=== PATIENT | female | born 1940 | race Caucasian/White ===

== ENCOUNTER → 2017-12-04 | Outpatient (CLI) | payer OTHER ==
[~2017-12-04] MED LIST: AMLODIPINE BESYL5 MG PO
== END | disposition home or self-care (01) ==
LOC: MRI 12:58
DX: I65.22 Occlusion and stenosis of left carotid artery (principal); R93.8 Abnormal findings on diagnostic imaging of other specified body structures; I10 Essential (primary) hypertension; Z90.710 Acquired absence of both cervix and uterus; Z85.41 Personal history of malignant neoplasm of cervix uteri

== ENCOUNTER → 2018-01-17 | Outpatient (CLI) | payer OTHER ==
--- NOTE | ~2018-01-17 | ST ---
[place], [place] EXERCISE STRESS TEST REPORT NAME: LISA ORNELAS [facility] #: [id number] UNIT #: [id number] ROOM: DOCTOR: MANPREET LUGO MD BIRTHDATE: [birth year] DOS: 01/17/2018 INDICATION: Dyspnea. PROCEDURE: The patient was given a rapid infusion of regadenoson 0.4 mg intravenously followed by a saline flush. She experienced lightheadedness and a warm sensation. Her resting heart rate of 60 aidan to 101. The resting blood pressure 140/62, did not change. Her resting electrocardiogram showed sinus rhythm with nonspecific T-wave flattening. She did develop inferior lateral T-wave inversion with the infusion, it resolved early in recovery. Forty seconds after the infusion of regadenoson, she was given radionuclide intravenously. IMPRESSION: 1. Well tolerated infusion of regadenoson. 2. Radionuclide administered. Please see the separate imaging report for further details of the patient's stress test results. MANPREET LUGO MD CM:STRESS:EXERCISE STRESS TEST REPORT [id number] VINAY LUGO MD
== END | disposition home or self-care (01) ==
LOC: CARD 01:53
DX: R06.09 Other forms of dyspnea (principal)

== ENCOUNTER → 2018-01-30 | Day surgery (SDC) | payer OTHER ==
[~2018-01-30] VITALS: Ht 154.9 cm; Wt 53.5 kg
[~2018-01-30] MED LIST changes: +PROVENTIL HFA6.7 GM INH; +SYMB80 INH
--- NOTE | ~2018-01-30 | PROC NOTE ---
[place], [place] PROCEDURE NOTE NAME: LISA ORNELAS [facility] #: [id number] UNIT #: [id number] ROOM: DOCTOR: JAMES HERNANDEZ MD,PAT BIRTHDATE: [birth year] DOS: 01/30/2018 PRIMARY CARE PHYSICIAN: Elva Brown M.D. PROCEDURE: Bronchoscopy. PREOPERATIVE DIAGNOSIS: The patient with the cavitation 2 cm lesion in the right upper lobe. POSTOPERATIVE DIAGNOSIS: The patient with the cavitation 2 cm lesion in the right upper lobe. PROCEDURE DESCRIPTION: Informed consent obtained for the patient. The patient was brought to the operating room. She was placed in supine position. Conscious sedation administered by the Anesthesia Department. After achieving proper sedation, airway introduced into the mouth. Bronchoscope advanced to the airway into the laryngeal area. Epiglottis and vocal cords were seen. The bronchoscope advanced to the vocal cord and tracheal lumen. Tracheal lumen was noted without any secretions. The efraín noted sharp. Right upper, right middle, right lower, left upper, lingular lower bronchi were all examined individually. There were no obstructive lesions noted. The specimen for the patient for the bronchial washing taken from the right upper lobe without any difficulty. Postoperative diagnosis were discussed with the patient's family members. PAT RAMIREZ MD CM:PROCNOTE:PROCEDURE NOTE 1203 15 PAT HERNANDEZ MD
[2018-01-30 08:00] VITALS: BP 131/59
[2018-01-30 09:18] VITALS: BP 101/59
[2018-01-30 09:33] VITALS: BP 116/45
[2018-01-30 09:48] VITALS: BP 114/51
[2018-01-30 09:55] VITALS: BP 118/64
[2018-01-31 16:08] LABS: ACID FAST SPEC PROCESSING Concentration (.)
== END | disposition home or self-care (01) ==
LOC: SDC 01-28 12:30
PROVIDERS: Internal Medicine Critical Care Medicine
DX: J98.4 Other disorders of lung (principal); Z90.710 Acquired absence of both cervix and uterus; Z82.49 Family history of ischemic heart disease and other diseases of the circulatory system; F17.210 Nicotine dependence, cigarettes, uncomplicated

== ENCOUNTER → 2018-02-06 | Outpatient (CLI) | payer OTHER ==
[2018-02-07 11:05] LABS: ANTI-DSDNA ANTIBODIES 096339 5 IU/mL (0-9); ANTI-RNP ANTIBODIES <0.2 AI (0.0-0.9); ANTICHROMATIN ANTIBODIES <0.2 AI (0.0-0.9); ANTISCLERODERMA-70 AB <0.2 AI (0.0-0.9); SJOGREN ANTI-SS-A <0.2 AI (0.0-0.9); SJOREN AB, ANTI-SS-B <0.2 AI (0.0-0.9)
[2018-02-07 15:06] LABS: ANGIOTENSIN-CONVERTING ENZYME 62 U/L (14-82)
[2018-02-07 16:08] LABS: ATYPICAL PANCA <1:20 titer (Neg:<1:20); CYTOPLASMIC (C-ANCA) <1:20 titer (Neg:<1:20)
[2018-02-08 05:08] LABS: IGG SUBCLASS 1 301 mg/dL (248-810); IGG SUBCLASS 2 173 mg/dL (130-555); IGG SUBCLASS 3 56 mg/dL (15-102); IGG SUBCLASS 4 4 mg/dL (2-96); IMMUNOGLOBULIN G, QNT 564 mg/dL (700-1600)
[2018-02-08 19:05] LABS: BLASTOMYCES ANTIBODY Negative (Neg:<1:1)
[2018-02-11 04:09] LABS: MITOGEN VALUE 6.27 IU/mL (.); TB Ag MINUS NIL VALUE 0.05 IU/mL (.); TB Ag VALUE 0.08 IU/mL (.); TB GOLD Negative (Negative)
== END | disposition home or self-care (01) ==
LOC: LAB 14:16 → EDSTATUS 14:16
PROVIDERS: Internal Medicine Critical Care Medicine
DX: J84.9 Interstitial pulmonary disease, unspecified (principal)

== ENCOUNTER → 2018-02-18 | Day surgery (SDC) | payer OTHER ==
[2018-02-18] VITALS (9 sets, daily range): BP systolic 109–134; BP diastolic 42–84
[~2018-02-18] VITALS: Ht 152.4 cm; Wt 56.7 kg
[~2018-02-18] MED LIST changes: +OMEPRAZOLE40 MG PO
[2018-02-18 12:12] LABS: ACT PARTIAL THROMBO TIME 22.2 SECONDS (20.8-31.5); INTERNATIONAL NORM RATIO 0.9 (2.0-3.5)
== END | disposition home or self-care (01) ==
LOC: SDC 00:47
PROVIDERS: Internal Medicine Critical Care Medicine
DX: C34.11 Malignant neoplasm of upper lobe, right bronchus or lung (principal); J44.9 Chronic obstructive pulmonary disease, unspecified; I10 Essential (primary) hypertension; K21.9 Gastro-esophageal reflux disease without esophagitis; Z90.49 Acquired absence of other specified parts of digestive tract; Z82.49 Family history of ischemic heart disease and other diseases of the circulatory system; Z90.710 Acquired absence of both cervix and uterus; F17.210 Nicotine dependence, cigarettes, uncomplicated

== ENCOUNTER 2018-04-01 11:40 | Emergency (ER) | payer OTHER ==
[~2018-04-01] VITALS: Ht 162.5 cm; Wt 68.0 kg
[2018-04-01 12:11] LABS: HEMATOCRIT 34.2 % (37.0-47.0); HEMOGLOBIN 11.6 g/dl (12.0-16.0); MEAN CELL VOLUME 98.8 fl (81.0-99.0); MEAN CORPUSCULAR HGB 33.5 pg (27.0-31.0); MEAN CORPUSCULAR HGB CONC 33.9 g/dl (33.0-37.0); MEAN PLATELET VOLUME 11.6 fl (9.6-12.3); NUCLEATED RED BLOOD CELL 0.6 % (0.0-0.0); RED BLOOD COUNT 3.46 10*6/uL (4.10-5.10); RED CELL DISTRI WIDTH 12.3 % (0-14.5); WHITE BLOOD COUNT 3.1 10*3/uL (4.8-10.8)
[2018-04-01 12:18] LABS: ACT PARTIAL THROMBO TIME 22.4 SECONDS (20.8-31.5); INTERNATIONAL NORM RATIO 0.9 (2.0-3.5)
[2018-04-01 12:23] LABS: CREATININE 1.26 mg/dL (0.55-1.02)
[2018-04-01 12:30] LABS: PLATELET COUNT AUTOMATED 2 10*3/uL (130-400)
[2018-04-01 12:36] LABS: ATYPICAL LYMPHS 2 % (0-0); TOTAL CELLS COUNTED 100 #CELLS
[2018-04-01 12:37] LABS: PLATELET SUFFICIENCY LOW (NORMAL)
== END 2018-04-01 16:18 | disposition home or self-care (01) ==
LOC: ED 11:40
PROVIDERS: Emergency Medicine
DX: R04.0 Epistaxis (principal); D72.829 Elevated white blood cell count, unspecified; D69.6 Thrombocytopenia, unspecified; F17.200 Nicotine dependence, unspecified, uncomplicated; Z90.710 Acquired absence of both cervix and uterus; Z79.899 Other long term (current) drug therapy; Z85.118 Personal history of other malignant neoplasm of bronchus and lung

== ENCOUNTER → 2018-04-02 | Outpatient (CLI) | payer OTHER ==
[2018-04-02 16:11] LABS: HEMATOCRIT 33.9 % (37.0-47.0); HEMOGLOBIN 11.3 g/dl (12.0-16.0); MEAN CELL VOLUME 99.7 fl (81.0-99.0); MEAN CORPUSCULAR HGB 33.2 pg (27.0-31.0); MEAN CORPUSCULAR HGB CONC 33.3 g/dl (33.0-37.0); MEAN PLATELET VOLUME 10.8 fl (9.6-12.3); RED CELL DISTRI WIDTH 12.1 % (0-14.5); WHITE BLOOD COUNT 2.4 10*3/uL (4.8-10.8)
[2018-04-02 16:13] LABS: PLATELET COUNT AUTOMATED 46 10*3/uL (130-400)
[2018-04-02 16:32] LABS: BASOPHILS 1 % (0-1); PLATELET SUFFICIENCY LOW (NORMAL); TOTAL CELLS COUNTED 100 #CELLS
== END | disposition home or self-care (01) ==
LOC: LAB 15:18
PROVIDERS: Internal Medicine Hematology & Oncology
DX: C34.11 Malignant neoplasm of upper lobe, right bronchus or lung (principal)

== ENCOUNTER → 2018-04-07 | Outpatient (CLI) | payer OTHER ==
[2018-04-07 14:27] LABS: HEMATOCRIT 30.2 % (37.0-47.0); HEMOGLOBIN 10.2 g/dl (12.0-16.0); MEAN CELL VOLUME 98.7 fl (81.0-99.0); MEAN CORPUSCULAR HGB 33.3 pg (27.0-31.0); MEAN CORPUSCULAR HGB CONC 33.8 g/dl (33.0-37.0); MEAN PLATELET VOLUME 10.1 fl (9.6-12.3); PLATELET COUNT AUTOMATED 152 10*3/uL (130-400); RED BLOOD COUNT 3.06 10*6/uL (4.10-5.10); RED CELL DISTRI WIDTH 11.7 % (0-14.5); WHITE BLOOD COUNT 2.8 10*3/uL (4.8-10.8)
[2018-04-07 14:29] LABS: BILIRUBIN NEGATIVE (NEGATIVE); BLOOD TRACE-LYSED (NEGATIVE); CLARITY CLEAR (CLEAR); COLOR YELLOW (YELLOW); GLUCOSE NEGATIVE (NEGATIVE); KETONE NEGATIVE (NEGATIVE); LEUKO ESTERASE NEGATIVE (NEGATIVE); NITRITE NEGATIVE (NEGATIVE); SPECIFIC GRAVITY <= 1.005 (1.005-1.030); UROBILINOGEN 0.2 E.U./dl (0.2-1.0)
[2018-04-07 14:39] LABS: BACTERIA 1+; RBC 0-2 rbc/hpf (0-2)
[2018-04-07 15:02] LABS: TOTAL CELLS COUNTED 100 #CELLS
[2018-04-07 15:03] LABS: PLATELET SUFFICIENCY NORMAL (NORMAL)
== END | disposition home or self-care (01) ==
LOC: LAB 13:52
PROVIDERS: Internal Medicine Hematology & Oncology; Surgery
DX: C34.11 Malignant neoplasm of upper lobe, right bronchus or lung (principal); N39.0 Urinary tract infection, site not specified

== ENCOUNTER → 2018-04-10 | Day surgery (SDC) | payer OTHER ==
[2018-03-24 12:26] LABS: BASO # 0.1 10*3/uL (0.0-0.1); BASO % 0.9 % (0.0-1.0); EOS # 0.2 10*3/uL (0.0-0.4); EOS % 3.2 % (1.0-4.0); HEMATOCRIT 44.7 % (37.0-47.0); HEMOGLOBIN 14.5 g/dl (12.0-16.0); LYMPH # 2.6 10*3/uL (1.3-4.4); LYMPH % 43.8 % (27.0-41.0); MEAN CELL VOLUME 101.8 fl (81.0-99.0); MEAN CORPUSCULAR HGB CONC 32.4 g/dl (33.0-37.0); MEAN PLATELET VOLUME 12.1 fl (9.6-12.3); MONO # 0.1 10*3/uL (0.1-1.0); MONO % 1.7 % (3.0-9.0); NEUT # 2.9 10*3/uL (2.3-7.9); NEUT % 50.2 % (47.0-73.0); PLATELET COUNT AUTOMATED 83 10*3/uL (130-400); RED BLOOD COUNT 4.39 10*6/uL (4.10-5.10); RED CELL DISTRI WIDTH 12.6 % (0-14.5); WHITE BLOOD COUNT 5.9 10*3/uL (4.8-10.8)
[2018-03-24 12:36] LABS: BILIRUBIN NEGATIVE (NEGATIVE); BLOOD NEGATIVE (NEGATIVE); CLARITY SL CLOUDY (CLEAR); COLOR YELLOW (YELLOW); GLUCOSE NEGATIVE (NEGATIVE); KETONE NEGATIVE (NEGATIVE); LEUKO ESTERASE 1+ (NEGATIVE); NITRITE NEGATIVE (NEGATIVE); PH 5.5 (5.0-9.0); SPECIFIC GRAVITY 1.015 (1.005-1.030); UROBILINOGEN 0.2 E.U./dl (0.2-1.0)
[2018-03-24 12:54] LABS: CREATININE 1.12 mg/dL (0.55-1.02); POTASSIUM 4.7 mmol/L (3.5-5.1)
[2018-03-24 13:03] LABS: WBC 31-40 wbc/hpf (0-5)
[2018-03-24 13:07] LABS: ACT PARTIAL THROMBO TIME 21.7 SECONDS (20.8-31.5); INTERNATIONAL NORM RATIO 0.9 (2.0-3.5)
[2018-03-24 13:09] LABS: BACTERIA 3+; EPITHELIAL CELLS 15-20
[2018-03-27 09:19] LABS: BILIRUBIN NEGATIVE (NEGATIVE); BLOOD NEGATIVE (NEGATIVE); CLARITY SL CLOUDY (CLEAR); COLOR YELLOW (YELLOW); GLUCOSE NEGATIVE (NEGATIVE); KETONE NEGATIVE (NEGATIVE); LEUKO ESTERASE TRACE (NEGATIVE); NITRITE NEGATIVE (NEGATIVE); PH 5.5 (5.0-9.0); SPECIFIC GRAVITY <= 1.005 (1.005-1.030); UROBILINOGEN 0.2 E.U./dl (0.2-1.0)
[2018-03-27 09:45] LABS: BACTERIA 1+
[2018-04-09 16:26] LABS: ACT PARTIAL THROMBO TIME 22.4 SECONDS (20.8-31.5)
[2018-04-09 16:30] LABS: CREATININE 1.16 mg/dL (0.55-1.02)
[~2018-04-10] VITALS: Ht 152.4 cm; Wt 54.4 kg
[~2018-04-10] MED LIST changes: +NORCO 5-325 TA1 EACH PO
--- NOTE | ~2018-04-10 | PROC NOTE ---
[place], [place] PROCEDURE NOTE NAME: LISA ORNELAS [facility] #: [id number] UNIT #: [id number] ROOM: DOCTOR: TOMMY ALBARADO MD BIRTHDATE: [birth year] DOS: 04/10/2018 PREOPERATIVE DIAGNOSIS: Right lung cancer. POSTOPERATIVE DIAGNOSIS: Right lung cancer. PROCEDURE: Left internal jugular MediPort placement. SURGEON: Tommy Albarado MD BUSINESS LINE CONTROLLER: DEEP. ANESTHESIA: MAC with local (1% plain lidocaine). INDICATION OF PROCEDURE: This is a 77-year-old lady who was recently diagnosed with a right lung cancer and is on chemotherapy, who is here for a MediPort placement on the left internal jugular route. The procedure and its complications explained to the patient in detail preoperatively. Complications that were discussed included but were not limited to bleeding, infection, hemothorax, pneumothorax, prolonged pain, and damage to lying vital structures. She agreed to proceed. DESCRIPTION OF PROCEDURE: After identifying the patient, the patient was brought to the operating suite and laid in the supine position. After IV sedation was administered, a timeout procedure was called and the parts were painted and draped in the usual sterile fashion. With the help of ultrasound guidance, the left internal jugular vein was identified and with the help of Seldinger technique, the left internal jugular vein was accessed with the help of a needle. This was done after local anesthesia was infiltrated for analgesia. After the left internal jugular vein was accessed, a guidewire wire was passed and it was confirmed to be in good position on fluoroscopy. Thereafter, a spot was chosen on the anterior chest wall, 2-3 cm below the left clavicle and the incision was marked and local anesthesia was infiltrated. A pocket was created with the help of a knife and electrocautery. Thereafter, through the area of the pocket the catheter was passed over an introducer to the area of the left neck where the initial access of the left internal jugular vein was obtained. Thereafter, the dilator and sheath were passed over the wire and the wire was removed. The sheath was kept in place and the dilator was removed. The catheter was then passed over the sheath into the left internal jugular vein and passed to the junction of the superior vena cava and the right atrium, which was confirmed on fluoroscopy. Thereafter, the catheter was cut to size and the port was attached to its end. The port was then fixed to the underlying soft tissue with the help of 3-0 Prolene in an interrupted fashion. Heparin was injected into the port and it was found to have good flow as well as the blood flow was found to have a good blood return as well. At this point, the subcutaneous tissue was approximated with the help of 3-0 Vicryl in a running fashion and the skin edges were approximated with a 4-0 Vicryl in a subcuticular running fashion. The access site in the left neck was also approximated with the help of 4-0 Vicryl in a subcuticular fashion. Dressing was placed. Prior to placing the dressing, the port was accessed again percutaneously and was [place], [place] PROCEDURE NOTE NAME: LISA ORNELAS UNIT #: [id number] ROOM: DOCTOR: TOMMY ALBARADO MD BIRTHDATE: [birth year] found to have good blood return and good flow to heparin. The patient was brought back to the recovery room in stable fashion. There were no complications. Dr. Tommy Albarado, the attending surgeon, was present throughout the operating case. A stat chest x-ray was ordered for confirmatory placement in the PACU. Tommy Albarado MD CM:PROCNOTE:PROCEDURE NOTE [id number] TOMMY ALBARADO MD
[2018-04-10 07:00] VITALS: BP 143/58
[2018-04-10 08:35] VITALS: BP 95/42
[2018-04-10 08:50] VITALS: BP 124/55
[2018-04-10 09:05] VITALS: BP 124/58
[2018-04-10 09:20] VITALS: BP 123/46; BP 134/56
== END | disposition home or self-care (01) ==
LOC: SDC 03-24 09:30
PROVIDERS: Surgery
DX: C34.91 Malignant neoplasm of unspecified part of right bronchus or lung (principal); I10 Essential (primary) hypertension; J44.9 Chronic obstructive pulmonary disease, unspecified; K21.9 Gastro-esophageal reflux disease without esophagitis; F17.210 Nicotine dependence, cigarettes, uncomplicated; Z79.899 Other long term (current) drug therapy; Z90.710 Acquired absence of both cervix and uterus; Z82.49 Family history of ischemic heart disease and other diseases of the circulatory system

== ENCOUNTER → 2018-04-15 | Outpatient (CLI) | payer OTHER ==
[2018-04-15 12:54] LABS: HEMOGLOBIN 10.7 g/dl (12.0-16.0); MEAN CELL VOLUME 102.2 fl (81.0-99.0); MEAN CORPUSCULAR HGB 33.1 pg (27.0-31.0); MEAN CORPUSCULAR HGB CONC 32.4 g/dl (33.0-37.0); MEAN PLATELET VOLUME 9.7 fl (9.6-12.3); PLATELET COUNT AUTOMATED 356 10*3/uL (130-400); RED BLOOD COUNT 3.23 10*6/uL (4.10-5.10); RED CELL DISTRI WIDTH 12.8 % (0-14.5); WHITE BLOOD COUNT 9.2 10*3/uL (4.8-10.8)
[2018-04-15 13:40] LABS: PLATELET SUFFICIENCY NORMAL (NORMAL); TOTAL CELLS COUNTED 100 #CELLS
== END | disposition home or self-care (01) ==
LOC: LAB 11:57
PROVIDERS: Internal Medicine Hematology & Oncology
DX: C34.11 Malignant neoplasm of upper lobe, right bronchus or lung (principal)

== ENCOUNTER 2018-04-20 12:57 | Emergency (ER) | payer OTHER ==
[~2018-04-20] VITALS: Wt 54.4 kg
[2018-04-20 14:02] LABS: HEMATOCRIT 31.8 % (37.0-47.0); HEMOGLOBIN 10.2 g/dl (12.0-16.0); MEAN CELL VOLUME 103.2 fl (81.0-99.0); MEAN CORPUSCULAR HGB 33.1 pg (27.0-31.0); MEAN CORPUSCULAR HGB CONC 32.1 g/dl (33.0-37.0); MEAN PLATELET VOLUME 10.7 fl (9.6-12.3); PLATELET COUNT AUTOMATED 191 10*3/uL (130-400); RED BLOOD COUNT 3.08 10*6/uL (4.10-5.10); WHITE BLOOD COUNT 6.9 10*3/uL (4.8-10.8)
[2018-04-20 14:09] LABS: ACT PARTIAL THROMBO TIME 22.4 SECONDS (20.8-31.5); ALBUMIN 2.9 gm/dl (3.1-4.5); ALKALINE PHOSPHATASE 89 U/L (45-117); BUN 19 mg/dl (7-24); CHLORIDE 101 mmol/L (98-107); CREATININE 1.02 mg/dL (0.55-1.02); POTASSIUM 4.2 mmol/L (3.5-5.1); SGOT/AST 30 IU/L (3-35); SGPT/ALT 33 U/L (12-78); SODIUM 138 mmol/L (136-145); TOTAL PROTEIN 6.1 gm/dL (6.4-8.2)
[2018-04-20 14:13] LABS: TROPONIN I < 0.015 ng/ml (<0.045)
[2018-04-20 14:25] LABS: PLATELET SUFFICIENCY NORMAL (NORMAL); TOTAL CELLS COUNTED 100 #CELLS
== END 2018-04-20 14:57 | disposition home or self-care (01) ==
LOC: ED 12:57
PROVIDERS: Emergency Medicine
DX: R55 Syncope and collapse (principal); K59.00 Constipation, unspecified; R60.0 Localized edema; F17.200 Nicotine dependence, unspecified, uncomplicated; Z90.710 Acquired absence of both cervix and uterus; Z98.890 Other specified postprocedural states; Z79.899 Other long term (current) drug therapy; Z85.118 Personal history of other malignant neoplasm of bronchus and lung

== ENCOUNTER → 2018-05-06 | Outpatient (CLI) | payer OTHER | END | disposition home or self-care (01) | LOC: MEDIPORT 12:27 | DX: Z51.11 Encounter for antineoplastic chemotherapy (principal) ==

== ENCOUNTER 2018-05-28 21:01 | Inpatient (IN) | payer OTHER ==
[~2018-05-28] VITALS: Ht 152.4 cm; Wt 50.5 kg
--- NOTE | ~2018-05-28 | EKG ---
[place], [place] ELECTROCARDIOGRAM REPORT NAME: LISA ORNELAS UNIT #: [id number] ROOM: [facility] DOCTOR: KAREN DRAFT REPORT BIRTHDATE: [birth year] [place] Test Date: 2018-05-28 Test Time: 21:48:29 Pat Name: LISA ORNELAS Department: Room: Gender: F Finish Remover: SS RESP : 1940 Requested By: CARY FULLER Order Number: [id number] Reading MD: Kaia Lovelace MD Measurements Intervals [place] Rate: 90 P: 70 NE: 153 QRS: 69 QRSD: 71 T: 56 QT: 345 QTc: 422 Interpretive Statements Sinus arrhythmia Ventricular premature complex Baseline wander in lead(s) V1,V2 Otherwise, normal EKG. Electronically Signed On 05-29-2018 16:11:34 PDT by Kaia Lovelace MD CM:EKGRPT:ELECTROCARDIOGRAM REPORT [id number] CARY FULLER MD EPIPHANY DRAFT REPORT CARY FULLER MD
--- NOTE | ~2018-05-28 | WRIGHTHP ---
[place], [place] PATIENT HISTORY AND PHYSICAL EXAM NAME: LISA ORNELAS [facility] #: [id number] UNIT #: [id number] ROOM: [facility] DOCTOR: KATERINA GEE MD BIRTHDATE: [birth year] DOS: 05/28/2018 DIAGNOSES: 1. The patient is a 77-year-old female with a past medical history of carcinoma of the lung. The patient on chemotherapy since 02/[address] Rodriguez. 2. Gastroesophageal reflux disease and esophagitis along with hiatal hernia. 3. Nicotine smoke dependence. 4. Chronic obstructive pulmonary disease with chronic shortness of breath. 5. Benign essential hypertension. HISTORY OF PRESENT ILLNESS: The patient presented to the Emergency Department with easy bruising and feeling unwell. In the Emergency Department, the patient was found to be anemic and she had absolute thrombocytopenia. White cell count of 3700, hemoglobin of 6.9, platelets was 0, and neutrophils were only 23%. A call was placed to Dr. Childs who recommended admission and further management. The patient was given 6 units of platelets after admission and later on she also required 2 units of packed cells for anemia because her hemoglobin dropped to 6.9. After admission, the patient is starting to feel much better and insisting on going home. Dr. Rodriguez has cleared her for discharge. The patient has no chest pain, no shortness of breath, no GI or urinary symptoms. REVIEW OF SYSTEMS: RESPIRATORY: No increasing shortness of breath. GASTROINTESTINAL: No nausea, vomiting, diarrhea or constipation. CARDIOVASCULAR SYSTEM: No chest pains or palpitations. FAMILY HISTORY: Noncontributory. SOCIAL HISTORY: The patient still smokes a few cigarettes a day. Denies any alcohol or drug abuse. HOME MEDICATIONS: Omeprazole, Dulera, chemotherapy for lung cancer. ALLERGIES: No known drug allergies. PHYSICAL EXAMINATION: GENERAL APPEARANCE: The patient is alert and oriented x 3, in no visible distress. HEENT AND NECK: Extraocular movements are intact. Sclerae are anicteric. Oral mucosa is moist and clean. No obvious facial weakness. Neck is supple without any lymphadenopathy. No thyromegaly. No JVD. No carotid arterial bruits. LUNGS: Clear to auscultation. No wheezing. No rhonchi. CARDIOVASCULAR SYSTEM: Heart rate is regular in rate and rhythm. S1 and S2 normally audible. No significant murmur or any other abnormal cardiac sounds. ABDOMEN: Soft, nontender. No obvious organomegaly. Bowel sounds are present. No obvious herniation. EXTREMITIES: Without significant cyanosis or edema. Warm to touch. CENTRAL NERVOUS SYSTEM: Alert and oriented x 3. Cranial nerves II-XII are intact. Speech is normal. The patient is able to move all extremities. [place], [place] PATIENT HISTORY AND PHYSICAL EXAM NAME: LISA ORNELAS UNIT #: [id number] ROOM: [facility] DOCTOR: KATERINA GEE MD BIRTHDATE: [birth year] muscle strength. Deep tendon reflexes are equal on both sides. Plantars were downgoing. LABORATORY DATA: White cell count has improved to 3000, hemoglobin improved to 9.6 after blood transfusion and platelets improved to 42,000. Normal serum electrolytes. Troponin elevated to 0.145. IMPRESSION: The patient has slight elevation of troponin I levels from uncertain etiology. The patient is without any symptoms of heart failure and no angina symptoms. I will repeat 1 troponin level on stat basis and if normalized, she can be discharged back to home to follow up with Dr. Rodriguez on Saturday as he has cleared her for discharge. The patient may have had myocardial ischemia induced by severe anemia with a hemoglobin of 6. The patient is now status post blood transfusion and hemoglobin has improved to 9.6. The patient with carcinoma of the lung, status post chemotherapy 1 week back resulting in pancytopenia and leukopenia, drop in hemoglobin, anemia and drop of platelets to 0. The patient is status post platelet and packed cell transfusion and platelets and hemoglobin have improved. White cell count is also improving. Dr. Rodriguez, her oncologist has decided to discharge her and follow up with him on Saturday. The patient is asymptomatic and feeling well. IMPRESSION: 1. Centrilobular emphysema with chronic shortness of breath, treated with bronchodilators. 2. Nicotine smoke dependence. The patient encouraged to stop. She still smokes a few cigarettes a day. 3. Hiatal hernia, gastroesophageal reflux disease and esophagitis, asymptomatic with treatment. KATERINA GEE MD CM:HISPHYS:PATIENT HISTORY AND PHYSICAL EXAMINATION [id number] KATERINA GEE MD 05/29/18 1741 interface
[2018-05-28 21:07] VITALS: BP 156/56
[2018-05-28 21:48] LABS: HEMATOCRIT 21.3 % (37.0-47.0); HEMOGLOBIN 6.9 g/dl (12.0-16.0); MEAN CELL VOLUME 105.4 fl (81.0-99.0); MEAN CORPUSCULAR HGB 34.2 pg (27.0-31.0); MEAN CORPUSCULAR HGB CONC 32.4 g/dl (33.0-37.0); RED BLOOD COUNT 2.02 10*6/uL (4.10-5.10); RED CELL DISTRI WIDTH 15.3 % (0-14.5); WHITE BLOOD COUNT 3.7 10*3/uL (4.8-10.8)
[2018-05-28 21:51] LABS: PLATELET COUNT AUTOMATED 0 10*3/uL (130-400)
[2018-05-28 22:01] VITALS: BP 168/64
[2018-05-28 22:04] LABS: ALBUMIN 3.2 gm/dl (3.1-4.5); ALKALINE PHOSPHATASE 101 U/L (45-117); BUN 18 mg/dl (7-24); CHLORIDE 104 mmol/L (98-107); CREATININE 0.96 mg/dL (0.55-1.02); POTASSIUM 3.9 mmol/L (3.5-5.1); SGOT/AST 13 IU/L (3-35); SGPT/ALT 18 U/L (12-78); SODIUM 140 mmol/L (136-145); TOTAL PROTEIN 5.9 gm/dL (6.4-8.2)
[2018-05-28 22:07] LABS: PLATELET SUFFICIENCY LOW (NORMAL); TOTAL CELLS COUNTED 100 #CELLS
[2018-05-28 22:08] LABS: TROPONIN I 0.145 ng/ml (<0.045)
[2018-05-28 23:01] VITALS: BP 157/82
[2018-05-28 23:20] VITALS: BP 157/82
[2018-05-28 23:29] LABS: BILIRUBIN NEGATIVE (NEGATIVE); BLOOD 1+ (NEGATIVE); CLARITY CLEAR (CLEAR); COLOR YELLOW (YELLOW); GLUCOSE NEGATIVE (NEGATIVE); KETONE NEGATIVE (NEGATIVE); LEUKO ESTERASE 1+ (NEGATIVE); NITRITE NEGATIVE (NEGATIVE); PH 5.5 (5.0-9.0); UROBILINOGEN 0.2 E.U./dl (0.2-1.0)
[2018-05-28 23:34] VITALS: BP 131/58
[2018-05-28 23:35] LABS: BACTERIA 1+; EPITHELIAL CELLS 0-2; WBC 16-20 wbc/hpf (0-5)
[2018-05-28 23:45] VITALS: BP 129/48
[2018-05-29] VITALS (12 sets, daily range): BP systolic 105–151; BP diastolic 37–71
[2018-05-29 05:58] LABS: HEMATOCRIT 18.8 % (37.0-47.0); MEAN CELL VOLUME 105.6 fl (81.0-99.0); MEAN CORPUSCULAR HGB 33.7 pg (27.0-31.0); MEAN CORPUSCULAR HGB CONC 31.9 g/dl (33.0-37.0); MEAN PLATELET VOLUME 9.4 fl (9.6-12.3); RED BLOOD COUNT 1.78 10*6/uL (4.10-5.10); RED CELL DISTRI WIDTH 15.1 % (0-14.5); WHITE BLOOD COUNT 2.6 10*3/uL (4.8-10.8)
[2018-05-29 06:04] LABS: ALBUMIN 3.1 gm/dl (3.1-4.5); ALKALINE PHOSPHATASE 95 U/L (45-117); BUN 15 mg/dl (7-24); CHLORIDE 106 mmol/L (98-107); POTASSIUM 3.9 mmol/L (3.5-5.1); SGOT/AST 13 IU/L (3-35); SGPT/ALT 16 U/L (12-78); SODIUM 142 mmol/L (136-145); TOTAL PROTEIN 5.4 gm/dL (6.4-8.2)
[2018-05-29 06:05] LABS: PLATELET COUNT AUTOMATED 57 10*3/uL (130-400)
[2018-05-29 06:30] LABS: BASOPHILS 1 % (0-1); TOTAL CELLS COUNTED 100 #CELLS
[2018-05-29 06:31] LABS: PLATELET SUFFICIENCY LOW (NORMAL)
[2018-05-29 15:37] LABS: MEAN CORPUSCULAR HGB 32.4 pg (27.0-31.0); MEAN CORPUSCULAR HGB CONC 33.7 g/dl (33.0-37.0); MEAN PLATELET VOLUME 9.7 fl (9.6-12.3); NUCLEATED RED BLOOD CELL 0.7 % (0.0-0.0); PLATELET COUNT AUTOMATED 42 10*3/uL (130-400); RED BLOOD COUNT 2.96 10*6/uL (4.10-5.10); RED CELL DISTRI WIDTH 17.3 % (0-14.5)
[2018-05-29 15:41] LABS: HEMATOCRIT 28.5 % (37.0-47.0); HEMOGLOBIN 9.6 g/dl (12.0-16.0); MEAN CELL VOLUME 96.3 fl (81.0-99.0)
[2018-05-29 16:20] LABS: PLATELET SUFFICIENCY LOW (NORMAL); TOTAL CELLS COUNTED 100 #CELLS
== END 2018-05-29 18:20 | disposition home or self-care (01) | DRG 809 ==
LOC: ED 21:01 → EDHOLD 22:38 → ICCU 22:38
PROVIDERS: Emergency Medicine Emergency Medical Services; Internal Medicine
PROC: 30233R1 Transfusion of Nonautologous Platelets into Peripheral Vein, Percutaneous Approach (ICD-10-PCS; principal; 2018-05-28)
PROC: 30233N1 Transfusion of Nonautologous Red Blood Cells into Peripheral Vein, Percutaneous Approach (ICD-10-PCS; 2018-05-29)
DX: D61.810 Antineoplastic chemotherapy induced pancytopenia (principal); C34.90 Malignant neoplasm of unspecified part of unspecified bronchus or lung; D64.9 Anemia, unspecified; J43.2 Centrilobular emphysema; F17.210 Nicotine dependence, cigarettes, uncomplicated; K21.0 Gastro-esophageal reflux disease with esophagitis; I10 Essential (primary) hypertension; K44.9 Diaphragmatic hernia without obstruction or gangrene; Z92.21 Personal history of antineoplastic chemotherapy; Z90.710 Acquired absence of both cervix and uterus; Z83.3 Family history of diabetes mellitus; Z82.49 Family history of ischemic heart disease and other diseases of the circulatory system; Z82.3 Family history of stroke

== ENCOUNTER → 2018-06-04 | Outpatient (CLI) | payer OTHER ==
[2018-06-04 09:30] VITALS: BP 111/52
[2018-06-04 10:15] VITALS: BP 120/59
== END | disposition home or self-care (01) ==
LOC: TRNFUSION 02:03
DX: C34.11 Malignant neoplasm of upper lobe, right bronchus or lung (principal); I10 Essential (primary) hypertension; K21.9 Gastro-esophageal reflux disease without esophagitis; J44.9 Chronic obstructive pulmonary disease, unspecified; Z90.710 Acquired absence of both cervix and uterus; Z82.49 Family history of ischemic heart disease and other diseases of the circulatory system; F17.210 Nicotine dependence, cigarettes, uncomplicated

== ENCOUNTER 2021-09-27 00:50 | Emergency (ER) | payer OTHER ==
[2021-09-27 01:20] LABS: BASO % 0.1 % (0.0-1.0); EOS % 0.2 % (1.0-4.0); LYMPH # 1.9 10*3/uL (1.3-4.4); LYMPH % 15.9 % (27.0-41.0); MEAN CELL VOLUME 107.2 fl (81.0-99.0); MEAN CORPUSCULAR HGB 34.4 pg (27.0-31.0); MEAN CORPUSCULAR HGB CONC 32.1 g/dl (33.0-37.0); MEAN PLATELET VOLUME 11.3 fl (9.6-12.3); MONO # 0.6 10*3/uL (0.1-1.0); MONO % 5.3 % (3.0-9.0); NEUT # 9.2 10*3/uL (2.3-7.9); NEUT % 78.1 % (47.0-73.0); PLATELET COUNT AUTOMATED 103 10*3/uL (130-400); RED BLOOD COUNT 4.01 10*6/uL (4.10-5.10); RED CELL DISTRI WIDTH 14.7 % (0-14.5); WHITE BLOOD COUNT 11.8 10*3/uL (4.8-10.8)
[2021-09-27 01:52] LABS: ALBUMIN 3.5 gm/dl (3.1-4.5); CREATININE 1.21 mg/dL (0.55-1.02); POTASSIUM 3.9 mmol/L (3.5-5.1)
[2021-09-27 01:53] LABS: TROPONIN I 0.037 ng/ml (<0.045)
[2021-09-27 03:07] LABS: BILIRUBIN Negative (Negative); BLOOD Negative (Negative); CLARITY Clear (Clear); COLOR Yellow (Yellow); GLUCOSE Negative (Negative); KETONE Negative (Negative); LEUKO ESTERASE Negative (Negative); NITRITE Negative (Negative); SPECIFIC GRAVITY <= 1.005 (1.001-1.030); UROBILINOGEN 0.2 E.U./dl (0.0-1.0)
[2021-09-27 03:16] LABS: BACTERIA TRACE; RBC 0-2 rbc/hpf (0-2)
[2021-09-27] MEDS ORDERED: ZOFRAN4 MG PO (03:23)
[2021-09-27 06:24] LABS: TOTAL PROTEIN 6.3 gm/dL (6.4-8.2)
== END 2021-09-27 05:07 | disposition home or self-care (01) ==
LOC: ED 00:50
PROVIDERS: Internal Medicine
DX: A08.4 Viral intestinal infection, unspecified (principal); N17.9 Acute kidney failure, unspecified; N18.9 Chronic kidney disease, unspecified; D75.89 Other specified diseases of blood and blood-forming organs; Z85.118 Personal history of other malignant neoplasm of bronchus and lung; Z79.899 Other long term (current) drug therapy; Z90.711 Acquired absence of uterus with remaining cervical stump; Z98.890 Other specified postprocedural states

== ENCOUNTER → 2023-06-20 | Outpatient (CLI) | payer OTHER ==
[~2023-06-20] MED LIST changes: +ZOFRAN4 MG PO
[2023-06-20 11:40] LABS: BASO # 0.1 10*3/uL (0.0-0.1); BASO % 0.8 % (0.0-1.0); EOS # 0.3 10*3/uL (0.0-0.4); EOS % 3.7 % (1.0-4.0); HEMATOCRIT 45.2 % (37.0-47.0); LYMPH # 1.5 10*3/uL (1.3-4.4); LYMPH % 20.1 % (27.0-41.0); MEAN CELL VOLUME 103.2 fl (81.0-99.0); MEAN CORPUSCULAR HGB 34.7 pg (27.0-31.0); MEAN CORPUSCULAR HGB CONC 33.6 g/dl (33.0-37.0); MEAN PLATELET VOLUME 10.6 fl (9.6-12.3); MONO # 0.7 10*3/uL (0.1-1.0); MONO % 9.8 % (3.0-9.0); NEUT # 4.9 10*3/uL (2.3-7.9); NEUT % 65.3 % (47.0-73.0); PLATELET COUNT AUTOMATED 128 10*3/uL (130-400); RED BLOOD COUNT 4.38 10*6/uL (4.10-5.10); RED CELL DISTRI WIDTH 12.5 % (0-14.5); WHITE BLOOD COUNT 7.6 10*3/uL (4.8-10.8)
[2023-06-20 12:20] LABS: ALKALINE PHOSPHATASE 83 U/L (46-116); BUN 21 mg/dl (9-23); CHLORIDE 104 mmol/L (98-107); CHOLESTEROL 153 mg/dL (<200); FREE T4 1.09 ng/dl (0.89-1.76); LDL CHOLESTEROL 97 mg/dL (9-159); POTASSIUM 4.7 mmol/L (3.4-5.1); TOTAL PROTEIN 6.1 gm/dL (6.0-8.0); TRIGLYCERIDES 67 mg/dl (<150); VITAMIN D, 25-HYDROXY 18.4 ng/mL (30-100)
[2023-06-20 12:27] LABS: SGPT/ALT < 7 U/L (10-49)
== END | disposition home or self-care (01) ==
LOC: US 01:23
PROVIDERS: ATTEND Internal Medicine
DX: I65.23 Occlusion and stenosis of bilateral carotid arteries (principal); R42 Dizziness and giddiness; I10 Essential (primary) hypertension

== ENCOUNTER → 2023-08-22 | Outpatient (CLI) | payer OTHER | END | disposition home or self-care (01) | LOC: US 12:30 | PROVIDERS: ATTEND Internal Medicine | DX: I70.202 Unspecified atherosclerosis of native arteries of extremities, left leg (principal); I77.9 Disorder of arteries and arterioles, unspecified; R20.2 Paresthesia of skin; M79.605 Pain in left leg; I10 Essential (primary) hypertension; M79.662 Pain in left lower leg; R09.89 Other specified symptoms and signs involving the circulatory and respiratory systems ==

== ENCOUNTER → 2024-04-30 | Outpatient (CLI) | payer MEDICARE ==
[~2024-04-30] MED LIST changes: +Regadenoson 0.4 MG/5 ML SYR IV ONE
== END | disposition home or self-care (01) ==
LOC: CARD 01:14
PROVIDERS: ATTEND Internal Medicine Cardiovascular Disease
DX: Z01.810 Encounter for preprocedural cardiovascular examination (principal); I73.9 Peripheral vascular disease, unspecified; I65.22 Occlusion and stenosis of left carotid artery; I63.9 Cerebral infarction, unspecified

== ENCOUNTER → 2024-06-11 | Outpatient (CLI) | payer MEDICARE ==
[~2024-06-11] MED LIST changes: -Regadenoson 0.4 MG/5 ML SYR IV ONE
[2024-06-11 12:07] LABS: BASO % 0.4 % (0.0-1.0); EOS # 0.4 10*3/uL (0.0-0.4); EOS % 4.3 % (1.0-4.0); HEMATOCRIT 29.4 % (37.0-47.0); LYMPH # 1.6 10*3/uL (1.3-4.4); LYMPH % 15.5 % (27.0-41.0); MEAN CELL VOLUME 102.8 fl (81.0-99.0); MEAN CORPUSCULAR HGB 33.2 pg (27.0-31.0); MEAN CORPUSCULAR HGB CONC 32.3 g/dl (33.0-37.0); MEAN PLATELET VOLUME 10.8 fl (9.6-12.3); MONO # 0.7 10*3/uL (0.1-1.0); MONO % 7.2 % (3.0-9.0); NEUT # 7.3 10*3/uL (2.3-7.9); NEUT % 72.2 % (47.0-73.0); PLATELET COUNT AUTOMATED 144 10*3/uL (130-400); RED BLOOD COUNT 2.86 10*6/uL (4.10-5.10); RED CELL DISTRI WIDTH 13.1 % (0-14.5); WHITE BLOOD COUNT 10.2 10*3/uL (4.8-10.8)
[2024-06-11 12:12] LABS: BILIRUBIN Negative (Negative); BLOOD 3+ (Negative); CLARITY Turbid (Clear); COLOR Yellow (Yellow); GLUCOSE Negative (Negative); KETONE Negative (Negative); LEUKO ESTERASE 3+ (Negative); NITRITE Negative (Negative); PH 7.5 (4.5-8.0); SPECIFIC GRAVITY 1.015 (1.001-1.030)
[2024-06-11 12:17] LABS: ACT PARTIAL THROMBO TIME 28.1 SECONDS (20.0-32.1)
[2024-06-11 12:29] LABS: ALKALINE PHOSPHATASE 75 U/L (46-116); BUN 26 mg/dl (9-23); CHLORIDE 104 mmol/L (98-107); POTASSIUM 4.3 mmol/L (3.4-5.1); TOTAL PROTEIN 5.5 gm/dL (6.0-8.0)
[2024-06-11 12:32] LABS: SGPT/ALT < 7 U/L (5-49)
[2024-06-11 13:44] LABS: WBC TNTC wbc/hpf (0-5)
== END | disposition home or self-care (01) ==
LOC: LAB 11:13
PROVIDERS: ATTEND Urology
DX: Z01.812 Encounter for preprocedural laboratory examination (principal)